=== PATIENT | female | born 1985 | race Caucasian/White ===

== ENCOUNTER 2017-04-06 09:22 | Emergency (ER) | payer BC ==
--- NOTE | 2017-04-06 09:44 | ER Document Report ---
HPI - HPI Patient complains to provider of: Cough and fever Onset: Other - Quality of pain: Achy Pain Level: 5 Context: 31-year-old ex-smoker who states small dose of nicotine is complaining of sudden onset of myalgias, cough and fever since . No nausea vomiting or diarrhea. Hurts when she coughs in the anterior chest. No flu shot this year Associated Symptoms: None Exacerbated by: Other - Cough Relieved by: Denies - ROS ROS below otherwise negative: Yes Systems Reviewed and Negative: Yes All other systems reviewed and negative Past Medical History - General Information source: Patient - Social History Smoking Status: Former Smoker Frequency of alcohol use: None Drug Abuse: None Lives with: Spouse/Significant other Family History: Reviewed & Not Pertinent Pulmonary Medical History: Reports: Hx Bronchitis - Chronic Surgical Hx: Negative Vertical Provider Document - CONSTITUTIONAL Agree With Documented VS: Yes Exam Limitations: No Limitations General Appearance: No Apparent Distress - INFECTION CONTROL TRAVEL OUTSIDE OF THE [place] IN LAST 30 DAYS: No - HEENT HEENT: Normocephalic, Pharyngeal Erythema - Minimal. negative: Conjuctival Injection, Tympanic Membrane Red - NECK Neck: Supple. negative: Lymphadenopathy-Left, Lymphadenopathy-Right - RESPIRATORY Respiratory: Rhonchi - Coarse expiratory bilateral, Wheezing - Coarse expiratory bilateral O2 Sat by Pulse Oximetry: 96 - CARDIOVASCULAR Cardiovascular: Regular Rate, Regular Rhythm - MUSCULOSKELETAL/EXTREMETIES Musculoskeletal/Extremeties: MAEW - NEURO Level of Consciousness: Awake, Alert, Appropriate - DERM Integumentary: Warm, Dry, No Rash Course - Re-evaluation Re-evalutation: 04/06/17 10:42 Chest x-ray is negative per rad 04/06/17 11:16 Looser cough and good production of the mucus after the breathing treatment. No wheezing or rales. - Vital Signs Vital signs: Temp Pulse Resp BP Pulse Ox 100.5 F H 98 20 112/61 96 04/06/17 09:26 04/06/17 09:26 04/06/17 09:26 04/06/17 09:26 04/06/17 09:26 Discharge - Discharge Clinical Impression: Influenza-like illness Condition: Good Disposition: HOME, SELF-CARE Instructions: Influenza ([facility]) 7490-5450, Acetaminophen, Use of Over-The- Counter Ibuprofen ([facility]), Inhaled Bronchodilators ([facility]) Additional Instructions: Plenty of fluids Rest Cough and deep breathe to get rid of the mucus Return to the emergency room if he get worse Metered-dose inhaler of the albuterol 2 puffs every 3 hours Tylenol and Motrin for body aches and fever Prescriptions: Albuterol Sulfate [Proair HFA Inhalation Aerosol 8.5 gm MDI] 2 puff IH Q3HP PRN #1 [email or web address] PRN Reason:
[2017-04-06] MEDS ORDERED: IBUPROFEN 600 MG TABLET PO ONE (09:52)
[2017-04-06] MEDS ORDERED: IPRATROPIUM/ALBUTEROL 0.5-2.5 MG/3 ML AMPUL NEB ONE (09:57)
--- NOTE | 2017-04-06 10:31 | RADIOLOGY REPORT (SQ) ---
EXAM DESCRIPTION: CHEST PA/LAT COMPLETED DATE/TIME: 04/06/2017 10:19 am REASON FOR STUDY: cough, fever COMPARISON: None. EXAM PARAMETERS: NUMBER OF VIEWS: two views TECHNIQUE: Digital Frontal and Lateral radiographic views of the chest acquired. RADIATION DOSE: NA LIMITATIONS: none FINDINGS: LUNGS AND PLEURA: No opacities, masses or pneumothorax. No pleural effusion. MEDIASTINUM AND HILAR STRUCTURES: No masses or contour abnormalities. HEART AND VASCULAR STRUCTURES: Heart normal size. No evidence for failure. BONES: No acute findings. HARDWARE: None in the chest. OTHER: No other significant finding. IMPRESSION: NO SIGNIFICANT RADIOGRAPHIC FINDING IN THE CHEST. TECHNICAL DOCUMENTATION: JOB ID: [id number] [employer]- All Rights Reserved
[2017-04-06 12:07] VITALS: BP 106/55
== END 2017-04-06 12:07 | disposition home or self-care (01) ==
LOC: ER 09:22
DX: J11.1 Influenza due to unidentified influenza virus with other respiratory manifestations (principal); M79.1 Myalgia; R05 Cough; R50.9 Fever, unspecified; R07.89 Other chest pain; Z87.891 Personal history of nicotine dependence
CPT/HCPCS: 94640; 99283; 71046; J7620